=== PATIENT | female | born 1980 | race Hispanic/Latino ===

== ENCOUNTER 2021-09-20 07:48 | Day surgery (SDC) | payer BC ==
[2021-09-13 14:11] LABS: BASOPHILS % (AUTO) 0.5 % (0.0-5.0); HEMATOCRIT 34.9 % (36-48); LYMPHOCYTES % (AUTO) 21.6 % (21.0-51.0); MEAN CORPUSCULAR HEMOGLOBIN 24.1 pg (27.0-33.0); MEAN CORPUSCULAR HGB CONC 31.5 g/dL (32.0-36.0); MEAN CORPUSCULAR VOLUME 76.4 fL (79-99); MONOCYTES % (AUTO) 5.7 % (3.0-13.0); NEUTROPHILS % (AUTO) 70.7 % (40.0-77.0); PLATELET COUNT (AUTO) 422 K/uL (130-400); RED BLOOD CELL COUNT(AUTO) 4.57 MIL/uL (4.00-5.50); RED CELL DISTRIBUTION WIDTH 14.9 % (11.0-15.5); WHITE BLOOD COUNT (AUTO) 11.2 K/uL (4.8-10.8)
[2021-09-19 11:56] VITALS: BP 111/51
[2021-09-20] VITALS (22 sets, daily range): BP systolic 83–138; BP diastolic 40–77
[~2021-09-20] VITALS: Ht 154.9 cm; Wt 79.7 kg
[~2021-09-20 07:48] MED LIST: IRON1CAP32 PO; METF-444 PO; VITAMIN D3 PO
[2021-09-20] MEDS ORDERED: PHENAZOPYRIDINE HCL 200 MG TABLET ONE (09:07)
[2021-09-20] MEDS ORDERED: 0.9%NACL 1000ML 1,000 ML IV ONE (09:07)
[2021-09-20] MEDS ORDERED: CEFAZOLIN SODIUM 1 GM VIAL ONE (09:07)
[2021-09-20] MEDS ORDERED: METRONIDAZOLE 500MG/100ML BAG 100 ML ONE (09:07)
[2021-09-20] MEDS ORDERED: SUCCINYLCHOLINE 200MG/10ML SYR ONE (10:11)
[2021-09-20] MEDS ORDERED: ROCURONIUM BROMIDE 10MG/1ML 5ML VL ONE (10:11)
[2021-09-20] MEDS ORDERED: LIDOCAINE PF 100MG/5ML (2%) SYRINGE 5ML ONE (10:11)
[2021-09-20] MEDS ORDERED: PROPOFOL 10 MG/ML 20ML VIAL IV ONE (10:12)
[2021-09-20] MEDS ORDERED: FENTANYL CITRATE PF 50 MCG/1 ML 2ML VIAL ONE (10:12)
[2021-09-20] MEDS ORDERED: BUPIVACAINE LIPOSOME/PF 266 MG/20 ML ML IV SCH (10:30)
[2021-09-20] MEDS ORDERED: CEFAZOLIN SODIUM 2 GM VIAL IV ONE (10:40)
[2021-09-20] MEDS ORDERED: PHENYLEPHRINE HCL 10 MG/ML 1ML VIAL IV ONE (10:58)
[2021-09-20] MEDS ORDERED: 0.9%NACL 10ML VIAL ONE (10:58)
[2021-09-20] MEDS ORDERED: KETOROLAC 30MG VIAL (30MG/ML) ONE (12:24)
[2021-09-20] MEDS ORDERED: ONDANSETRON 4MG INJ ONE ×2 (12:25→14:06)
[2021-09-20] MEDS ORDERED: NEOSTIGMINE 5MG/5ML SYR IV ONE (12:25)
[2021-09-20] MEDS ORDERED: GLYCOPYRROLATE 1 MG/5 ML SYRINGE ONE (12:26)
[2021-09-20] MEDS ORDERED: MEPERIDINE-PF 25 MG/ML SYG ONE ×2 (12:30→13:28)
[2021-09-20] MEDS ORDERED: FENTANYL CITRATE PF 50 MCG/1 ML 5ML AMP IV ONE (12:38)
[2021-09-20] MEDS ORDERED: ACETAMINOPHEN 500 MG TABLET ONE (14:06)
[2021-09-20] MEDS ORDERED: MORPHINE 10MG VIAL ONE (14:07)
[2021-09-20 15:29] LABS: HEMATOCRIT 30.6 % (36-48)
== END 2021-09-20 17:30 | disposition home or self-care (01) ==
LOC: DAH 07:48
PROVIDERS: ATTEND Obstetrics & Gynecology
DX: N92.0 Excessive and frequent menstruation with regular cycle (principal); Z20.822 Contact with and (suspected) exposure to COVID-19; N72 Inflammatory disease of cervix uteri; N88.8 Other specified noninflammatory disorders of cervix uteri; N80.0 Endometriosis of uterus; D25.9 Leiomyoma of uterus, unspecified; D50.0 Iron deficiency anemia secondary to blood loss (chronic); E66.9 Obesity, unspecified; E11.9 Type 2 diabetes mellitus without complications; Z79.899 Other long term (current) drug therapy; Z98.890 Other specified postprocedural states; Z98.891 History of uterine scar from previous surgery; Z98.51 Tubal ligation status; Z82.49 Family history of ischemic heart disease and other diseases of the circulatory system; Z83.49 Family history of other endocrine, nutritional and metabolic diseases; Z82.0 Family history of epilepsy and other diseases of the nervous system; Z68.33 Body mass index [BMI] 33.0-33.9, adult
CPT/HCPCS: 58571; S2900; 36415; 82948; 84703; 85014; 85018; 85025; 86850; 86900; 86901; 87635; A4344; C9290; C9803; J0330; J0690; J1885; J2001; J2175; J2270; J2370; J2405; J2704; J2710; J3010; J3490; J7030